=== PATIENT | female | born 2000 | race Caucasian/White ===

== ENCOUNTER 2018-01-29 17:46 | Emergency (ER) | payer MEDICAID ==
[~2018-01-29] VITALS: Ht 157.5 cm; Wt 59.1 kg
[~2018-01-29 17:46] MED LIST: DESYREL 50MG50 MG PO; KLONOPIN 0.5MG0.5 MG PO; ZITHROMAX Z PA250 MG PO
[2018-01-29 17:50] VITALS: TEMP 97.8
[2018-01-29] MEDS ORDERED: BENADRYL25 M2 PO (17:52)
[2018-01-29] MEDS ORDERED: PRENATAL PO (17:52)
[2018-01-29 18:28] LABS: COLLECTION METHOD CLEAN CATCH
[2018-01-29 18:40] LABS: AMORPHOUS CRYSTAL Present /uL; PH 7 (5-8); URINE APPEARANCE Cloudy; URINE BACTERIA None Seen /hpf; URINE BILIRUBIN Negative (NEGATIVE); URINE BLOOD Negative (NEGATIVE); URINE COLOR Yellow; URINE GLUCOSE Negative (NEGATIVE); URINE KETONE 1+ (NEGATIVE); URINE LEUKOCYTE ESTERASE Negative (NEGATIVE); URINE NITRATE Negative (NEGATIVE); URINE PROTEIN(semi-quant) Negative (NEGATIVE); URINE RBC 0-2 /hpf; URINE UROBILINOGEN Negative (NEGATIVE)
[2018-01-29 19:23] VITALS: BP 114/71; PULSE 86
== END 2018-01-29 19:24 | disposition home or self-care (01) ==
LOC: COL.ER 17:46
PROVIDERS: Emergency Medicine
DX: O26.892 Other specified pregnancy related conditions, second trimester (principal); R10.31 Right lower quadrant pain; Z3A.20 20 weeks gestation of pregnancy

== ENCOUNTER 2018-05-19 05:50 | Outpatient (CLI) | payer MEDICAID ==
[~2018-05-19] VITALS: Ht 154.9 cm; Wt 65.0 kg
[~2018-05-19 05:50] MED LIST changes: +BENADRYL25 M2 PO; +PRENATAL PO
[2018-05-19] MEDS ORDERED: ZOLOFT 25MG25 MG PO (06:26)
[2018-05-19 06:27] VITALS: BP 109/67; PULSE 71; TEMP 97.7
[2018-05-19 06:30] VITALS: BP 109/67; PULSE 71; TEMP 97.7
[2018-05-19 08:00] VITALS: BP 98/63; PULSE 66
[2018-05-19 08:06] LABS: COLLECTION METHOD CLEAN CATCH
[2018-05-19 08:13] LABS: PH 7 (5-8); SQUAMOUS EPITHELIAL 0-2 /hpf; URINE APPEARANCE Clear; URINE BACTERIA None Seen /hpf; URINE BILIRUBIN Negative (NEGATIVE); URINE BLOOD Negative (NEGATIVE); URINE COLOR Straw; URINE GLUCOSE Negative (NEGATIVE); URINE KETONE Trace (NEGATIVE); URINE LEUKOCYTE ESTERASE Negative (NEGATIVE); URINE NITRATE Negative (NEGATIVE); URINE PROTEIN(semi-quant) Negative (NEGATIVE); URINE RBC 0-2 /hpf; URINE UROBILINOGEN Negative (NEGATIVE); URINE WBC None Seen /hpf
[2018-05-19 09:00] VITALS: BP 100/60; PULSE 65
== END 2018-05-19 09:20 | disposition home or self-care (01) ==
LOC: LDRO 05:50 → COL.ER 05:50 → EDSTATUS 05:59 → LDR 06:00 → LDRO 09:20
PROVIDERS: Obstetrics & Gynecology
DX: O21.2 Late vomiting of pregnancy (principal); O99.89 Other specified diseases and conditions complicating pregnancy, childbirth and the puerperium; M54.5 Low back pain; Z3A.35 35 weeks gestation of pregnancy
CPT/HCPCS: OP

== ENCOUNTER 2018-05-30 21:22 | Outpatient (CLI) | payer MEDICAID ==
[~2018-05-30] VITALS: Ht 154.9 cm; Wt 64.5 kg
[~2018-05-30 21:22] MED LIST changes: +ZOLOFT 25MG25 MG PO
[2018-05-30 21:36] VITALS: BP 114/64; PULSE 86; TEMP 97.9
== END 2018-05-30 21:45 | disposition home or self-care (01) ==
LOC: LDRO 21:22
DX: O47.1 False labor at or after 37 completed weeks of gestation (principal); O99.333 Smoking (tobacco) complicating pregnancy, third trimester; F17.210 Nicotine dependence, cigarettes, uncomplicated; Z3A.37 37 weeks gestation of pregnancy; W19.XXXA Unspecified fall, initial encounter

== ENCOUNTER 2018-06-06 22:22 | Outpatient (CLI) | payer MEDICAID ==
[~2018-06-06] VITALS: Ht 154.9 cm; Wt 65.5 kg
[2018-06-06 23:00] VITALS: BP 112/63; PULSE 86; TEMP 97.6
[2018-06-06 23:33] VITALS: BP 107/64; PULSE 88
== END 2018-06-06 23:55 | disposition home or self-care (01) ==
LOC: LDRO 22:22 → LDR 22:30 → LDRO 23:55
DX: O62.9 Abnormality of forces of labor, unspecified (principal); Z3A.38 38 weeks gestation of pregnancy
CPT/HCPCS: OP

== ENCOUNTER 2018-06-13 06:17 | Inpatient (IN) | payer MEDICAID ==
[2018-06-13] VITALS (61 sets, daily range): BP systolic 95–135; BP diastolic 52–86; PULSE 71–171; TEMP 97.5–98.5
[~2018-06-13] VITALS: Ht 154.9 cm; Wt 65.5 kg
[2018-06-13 09:09] LABS: BASO % 0.2 % (0.0-2.0); EOS # 0.1 (0.0-0.7); EOS % 0.8 % (0-4.0); GRAN # 5.8 (1.4-6.5); GRAN % 65.5 % (42.2-75.2); HEMOGLOBIN 11.1 g/dl (12.0-15.0); LYMPH # 2.1 (1.2-3.4); LYMPH % 24.1 % (20.0-51.0); MEAN CELL VOLUME 87 fl (80.0-95.0); MEAN CORPUSCULAR HEMOGLOBIN 29 pg (26.0-32.0); MEAN CORPUSCULAR HGB CONC 33 g/dl (33.0-37.0); MEAN PLATELET VOLUME 11.7 fl (7.4-10.4); MONO # 0.8 (0.1-0.6); MONO % 8.6 % (1.7-9.3); PLATELET COUNT 198 K/mm3 (130-400); REDCELL DISTRIBUTION WIDTH-CV 13.4 % (11.5-14.5)
[2018-06-13 09:10] LABS: HEMATOCRIT 33.8 % (35.0-45.0)
[2018-06-13] MEDS ORDERED: PERCOCET 325 MG1 TA2 PO (09:10)
[2018-06-13] MEDS ORDERED: MOTRIN 800800 MG/TAB PO (09:10)
[2018-06-13 09:20] LABS: TRICYCLIC ANTIDEPRESS URINE NEGATIVE
[2018-06-14 01:30] VITALS: BP 115/78; PULSE 90; TEMP 98.4
[2018-06-14 05:15] VITALS: BP 102/61; PULSE 73; TEMP 97.8
[2018-06-14 07:20] VITALS: BP 101/65; PULSE 81; TEMP 98.2
[2018-06-14 12:30] VITALS: BP 98/67; PULSE 82; TEMP 98.1
[2018-06-14 17:15] VITALS: BP 94/51; PULSE 78; TEMP 98
[2018-06-14 20:50] VITALS: BP 116/80; PULSE 97; TEMP 97.9
[2018-06-15 09:00] VITALS: BP 104/69; PULSE 74
== END 2018-06-15 17:30 | disposition home or self-care (01) | DRG 775 ==
LOC: LDR 06:17 → OB 07:05
PROVIDERS: Obstetrics & Gynecology
PROC: 10E0XZZ Delivery of Products of Conception, External Approach (ICD-10-PCS; principal; 2018-06-13)
PROC: 0KQM0ZZ Repair Perineum Muscle, Open Approach (ICD-10-PCS; 2018-06-13)
PROC: 3E033VJ Introduction of Other Hormone into Peripheral Vein, Percutaneous Approach (ICD-10-PCS; 2018-06-13)
PROC: 10907ZC Drainage of Amniotic Fluid, Therapeutic from Products of Conception, Via Natural or Artificial Opening (ICD-10-PCS; 2018-06-13)
DX: O70.1 Second degree perineal laceration during delivery (principal); Z37.0 Single live birth; O36.0930 Maternal care for other rhesus isoimmunization, third trimester, not applicable or unspecified; Z3A.39 39 weeks gestation of pregnancy; O99.343 Other mental disorders complicating pregnancy, third trimester; F32.9 Major depressive disorder, single episode, unspecified; O62.2 Other uterine inertia
CPT/HCPCS: J2210; J2590; J7120

== ENCOUNTER 2020-04-28 01:01 | Emergency (ER) | payer SELFPAY ==
[~2020-04-28] VITALS: Ht 154.9 cm; Wt 56.8 kg
[~2020-04-28 01:01] MED LIST changes: +MOTRIN 800800 MG/TAB PO; +PERCOCET 325 MG1 TA2 PO
[2020-04-28 01:12] VITALS: TEMP 98.1
[2020-04-28 01:47] LABS: BASO # 0.1 (0.0-0.2); BASO % 0.7 % (0.0-2.0); EOS # 0.1 (0.0-0.7); EOS % 0.8 % (0-4.0); GRAN # 3.6 (1.4-6.5); GRAN % 47.8 % (42.2-75.2); HEMATOCRIT 42.9 % (37.0-47.0); HEMOGLOBIN 14.7 g/dl (12.5-16.0); LYMPH # 2.9 (1.2-3.4); MEAN CELL VOLUME 92 fl (80.0-100.0); MEAN CORPUSCULAR HEMOGLOBIN 32 pg (27.0-31.0); MEAN CORPUSCULAR HGB CONC 34 g/dl (33.0-37.0); MEAN PLATELET VOLUME 10.7 fl (7.4-10.4); MONO # 0.9 (0.1-0.6); MONO % 12.4 % (1.7-9.3); PLATELET COUNT 268 K/mm3 (130-400); RED BLOOD COUNT 4.66 M/mm3 (4.10-5.30); REDCELL DISTRIBUTION WIDTH-CV 13.2 % (11.5-14.5)
[2020-04-28 01:56] LABS: ACETAMINOPHEN < 10 ug/mL (10-30); ALANINE AMINOTRANSFERASE 23 U/L (4-34); ALBUMIN 4.7 gm/dL (3.5-5.0); ALCOHOL(ethanol),MEDICAL < 10 mg/dL; ALKALINE PHOSPHATASE 97 U/L (50-136); ANION GAP 10 mmol/L (7-16); AST,SGOT 30 U/L (15-37); BLOOD UREA NITROGEN 14 mg/dL (7-17); CALCIUM 9.2 mg/dL (8.4-10.2); CARBON DIOXIDE 24 mmol/L (22-30); CHLORIDE 103 mmol/L (98-107); CREATININE, serum 0.81 (0.52-1.25); GLUCOSE 128 mg/dL (74-106); POTASSIUM 3.6 mmol/L (3.4-5.0); SALICYLATE < 1.0 mg/dL; SODIUM 137 mmol/L (137-145); TOTAL PROTEIN 7.7 gm/dL (6.4-8.2)
[2020-04-28 02:25] LABS: TSH w REFLEX 0.422 uIU/mL (0.465-4.680)
[2020-04-28 10:24] LABS: TRICYCLIC ANTIDEPRESS URINE NEGATIVE
[2020-04-28 11:02] LABS: COLLECTION METHOD CLEAN CATCH
[2020-04-28 11:29] LABS: MUCOUS Present /lpf; PH 5 (5-8); URINE APPEARANCE Hazy; URINE BACTERIA None Seen /hpf; URINE BILIRUBIN Negative (NEGATIVE); URINE BLOOD Negative (NEGATIVE); URINE CALCIUM OXALATE CRYSTAL Present /hpf; URINE COLOR Yellow; URINE GLUCOSE Negative (NEGATIVE); URINE KETONE Trace (NEGATIVE); URINE LEUKOCYTE ESTERASE Negative (NEGATIVE); URINE NITRATE Negative (NEGATIVE); URINE PROTEIN(semi-quant) Negative (NEGATIVE); URINE RBC None Seen /hpf; URINE UROBILINOGEN Negative (NEGATIVE)
[2020-04-28 17:06] VITALS: BP 105/68; PULSE 107
== END 2020-04-28 17:25 | disposition home or self-care (01) ==
LOC: COL.ER 01:01
PROVIDERS: Emergency Medicine
DX: F60.0 Paranoid personality disorder (principal); Z91.5 Personal history of self-harm; Z32.02 Encounter for pregnancy test, result negative
CPT/HCPCS: J1630; J2060

== ENCOUNTER 2020-06-20 23:20 | Emergency (ER) | payer SELFPAY ==
[~2020-06-20] VITALS: Ht 154.9 cm; Wt 56.4 kg
[2020-06-20 23:45] LABS: COLLECTION METHOD CLEAN CATCH
[2020-06-20 23:58] LABS: BASO % 0.4 % (0.0-2.0); EOS # 0.1 (0.0-0.7); EOS % 0.7 % (0-4.0); GRAN # 5.3 (1.4-6.5); GRAN % 59.6 % (42.2-75.2); HEMATOCRIT 44.1 % (37.0-47.0); HEMOGLOBIN 15.2 g/dl (12.5-16.0); LYMPH # 2.7 (1.2-3.4); LYMPH % 30.3 % (20.0-51.0); MEAN CELL VOLUME 91 fl (80.0-100.0); MEAN CORPUSCULAR HEMOGLOBIN 31 pg (27.0-31.0); MEAN CORPUSCULAR HGB CONC 35 g/dl (33.0-37.0); MEAN PLATELET VOLUME 11.3 fl (7.4-10.4); MONO # 0.8 (0.1-0.6); MONO % 8.8 % (1.7-9.3); PLATELET COUNT 217 K/mm3 (130-400); RED BLOOD COUNT 4.84 M/mm3 (4.10-5.30); REDCELL DISTRIBUTION WIDTH-CV 11.9 % (11.5-14.5)
[2020-06-21] LABS: TRICYCLIC ANTIDEPRESS URINE NEGATIVE
[2020-06-21 00:05] LABS: ALANINE AMINOTRANSFERASE 18 U/L (4-34); ALBUMIN 4.6 gm/dL (3.5-5.0); ALKALINE PHOSPHATASE 93 U/L (50-136); ANION GAP 8 mmol/L (7-16); AST,SGOT 26 U/L (15-37); BILIRUBIN,TOTAL 0.6 mg/dL (0.0-1.0); BLOOD UREA NITROGEN 11 mg/dL (7-17); CALCIUM 9.5 mg/dL (8.4-10.2); CARBON DIOXIDE 25 mmol/L (22-30); CHLORIDE 105 mmol/L (98-107); CREATININE, serum 0.65 (0.52-1.25); GLUCOSE 95 mg/dL (74-106); POTASSIUM 3.4 mmol/L (3.4-5.0); SODIUM 138 mmol/L (137-145); TOTAL PROTEIN 7.4 gm/dL (6.4-8.2)
[2020-06-21 00:06] LABS: ACETAMINOPHEN < 10 ug/mL (10-30); ALCOHOL(ethanol),MEDICAL < 10 mg/dL; SALICYLATE < 1.0 mg/dL
[2020-06-21 00:09] LABS: MUCOUS Present /lpf; PH 6 (5-8); URINE APPEARANCE Cloudy; URINE BACTERIA Rare /hpf; URINE BILIRUBIN Negative (NEGATIVE); URINE BLOOD Negative (NEGATIVE); URINE COLOR Amber; URINE GLUCOSE Negative (NEGATIVE); URINE KETONE Trace (NEGATIVE); URINE LEUKOCYTE ESTERASE Trace (NEGATIVE); URINE NITRATE Negative (NEGATIVE); URINE PROTEIN(semi-quant) 1+ (NEGATIVE); URINE RBC 0-2 /hpf
[2020-06-21 03:25] VITALS: BP 138/78; PULSE 88; TEMP 98.6
== END 2020-06-21 03:27 | disposition home or self-care (01) ==
LOC: COL.ER 23:20
PROVIDERS: Emergency Medicine
DX: F41.0 Panic disorder [episodic paroxysmal anxiety] (principal); F43.10 Post-traumatic stress disorder, unspecified; F17.210 Nicotine dependence, cigarettes, uncomplicated
CPT/HCPCS: J2060